=== PATIENT | male | born 1995 | race Caucasian/White ===

== ENCOUNTER 2021-01-21 18:08 | Emergency (ER) | payer MEDICAID, OTHER ==
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
[2021-01-21] MEDS ORDERED: Methocarbamol 500 MG Tab PO ONE (18:57)
[2021-01-21] MEDS ORDERED: Ketorolac 10 MG Tab PO ONE (18:57)
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
== END 2021-01-21 21:09 | disposition home or self-care (01) ==
LOC: JP.ED 18:08
DX: S16.1XXA Strain of muscle, fascia and tendon at neck level, initial encounter (principal); S60.222A Contusion of left hand, initial encounter; V49.40XA Driver injured in collision with unspecified motor vehicles in traffic accident, initial encounter; Y92.410 Unspecified street and highway as the place of occurrence of the external cause
CPT/HCPCS: 72125; 73130; 99284; A9270